=== PATIENT | male | born 1970 | race African-American/Black ===

== ENCOUNTER 2020-05-02 14:00 | Emergency (ER) | payer OTHER ==
[2020-05-02 14:21] VITALS: BP 125/92
[2020-05-02] MEDS ORDERED: DIPHtheria,PERTUSSIS(ACELL),TETANUS VACCINE/PF 0.5 ML VIAL IM ONE (16:28)
[2020-05-02] MEDS ORDERED: LIDOCAINE (2%) 20 MG/1 ML VIAL 20 ML MDV INFILTRATI STA (16:28)
--- NOTE | 2020-05-02 16:35 | Emergency Department Report ---
ED Laceration HPI - HPI Chief Complaint: Laceration/Recheck/Suture Stated Complaint: THUMB LAC Time Seen by Provider: 05/02/20 16:13 Occurred When: Today Location: Upper Extremity Severity: mild Tetanus Status: Not up to Date Laceration Symptoms: Yes Pain, No Foreign Body Sensation, No Numbness, No Weakness Other History: 49-year-old male was cutting object with a knife resulting in a laceration to the left thumb between the first and second phalanges. Pain with range of motion but the bleeding is controlled with direct pressure. ED Review of Systems ROS: Stated complaint: THUMB LAC Other details as noted in HPI Comment: All other systems reviewed and negative ED Past Medical Hx - Past Medical History Additional medical history: high cholesterol - Surgical History Past Surgical History?: No - Social History Smoking Status: Current Every Day Smoker Substance Use Type: Alcohol Laceration Physical Exam - Exam General: Vital signs noted. No distress. Alert and acting appropriately. Wound Length (cm): 2 Laceration Location: Upper Extremity Laceration Exam: Yes Normal Distal CMS, No Foreign Body, No Exposed Tendon, Vessel, or Nerve, No Tendon Injury ED Course Vital Signs 05/02/20 14:20 Temperature 98.5 F Pulse Rate 67 Respiratory 16 Rate Blood Pressure 125/92 [Left] O2 Sat by Pulse 99 Oximetry - Procedure Description Procedures done: Left hand prepped and draped in sterile fashion as is achieved with 2% lidocaine with no epinephrine. 4-0 Prolene was placed in simple noted fashion x4 with good wound closure which was tolerated well with no complications proximation. Estimated blood loss was less than 2 cc Critical care attestation.: If time is entered above; I have spent that time in minutes in the direct care of this critically ill patient, excluding procedure time. ED Disposition Clinical Impression: Hand laceration Disposition: DC-01 TO HOME OR SELFCARE Is pt being admited?: No Does the pt Need Aspirin: No Condition: Stable Instructions: Suture Care (ED), Laceration (ED) Additional Instructions: Please follow-up for suture evaluation in 7 to 10 days for possible removal Referrals: PRIMARY CARE, [Primary Care Provider] - 3-5 Days [facility] [Provider Group] - 3-5 Days
== END 2020-05-02 17:34 | disposition home or self-care (01) ==
LOC: ED 14:00
DX: S61.012A Laceration without foreign body of left thumb without damage to nail, initial encounter (principal); W26.0XXA Contact with knife, initial encounter; Y93.89 Activity, other specified; Y92.89 Other specified places as the place of occurrence of the external cause; Y99.8 Other external cause status
CPT/HCPCS: 90471; 90715; 99282